=== PATIENT | male | born 1980 | race Asian ===

== ENCOUNTER 2022-10-24 14:32 | Inpatient (IN) | payer SELFPAY ==
[~2022-10-24] VITALS: Ht 175.3 cm; Wt 104.0 kg
[2022-10-24] MEDS: SODIUM CHLORIDE 0.9% 1,000 ML IV SCH (00:30)
[2022-10-24] MEDS ORDERED: PROPOFOL 10 MG/ML 20 ML IV ONE (16:15)
[2022-10-24] MEDS ORDERED: KETAMINE 50mg/ML 10ml Vial (500mg/10ml) IV ONE (16:15)
[2022-10-24] MEDS ORDERED: ONDANSETRON HCL 4 MG/2 ML VIAL IV ONE (18:15)
[2022-10-24] MEDS ORDERED: HYDROmorphone HCL 2 MG/ML VL/or syr IV ONE ×2 (18:15→22:45)
[2022-10-24] MEDS ORDERED: HYDROcodone-ACET 5/325MG TAB PO PRN (23:00)
[2022-10-24] MEDS ORDERED: NITROGLYCERIN 0.4 MG SL TAB SL PRN (23:00)
[2022-10-24] MEDS ORDERED: TEMAZEPAM 15 MG CAP PO PRN (23:00)
[2022-10-24] MEDS ORDERED: ACETAMINOPHEN 325 MG TAB PO PRN (23:00)
[2022-10-24] MEDS ORDERED: DOCUSATE SOD 100 MG CAP PO PRN (23:00)
[2022-10-24] MEDS ORDERED: MORPHINE SULFATE INJ 2 MG/ml SYRG IV PRN (23:00)
[2022-10-24] MEDS ORDERED: ONDANSETRON HCL 4 MG/2 ML VIAL IV PRN (23:00)
[2022-10-24 23:13] LABS: Basophils # (auto) 0 10 ^3/uL (0-0.2); Eosinophils # (auto) 0.1 10 ^3/uL (0-0.8); Hemoglobin 12.9 g/dL (13.5-17.5); Nucleated Red Blood Cells % 0.1 %; Red Cell Distribution Width 15.1 % (11.8-14.3)
[2022-10-24 23:15] LABS: Basophils % (auto) 0.4 % (0.0-2.0); Eosinophils % (auto) 1.2 % (0.0-7.0); Hematocrit 41.9 % (41.0-53.0); Lymphocytes % (auto) 36.3 % (10.0-50.0); Mean Corpuscular Hemoglobin 21.2 pg (28.0-32.0); Mean Corpuscular Hgb Conc. 30.8 g/dL (32.0-36.0); Mean Corpuscular Volume 68.7 fL (80.0-100.0); Monocytes # (auto) 0.8 10 ^3/uL (0-1.3); Monocytes % (auto) 10.2 % (0.0-12.0); Neutrophils # (auto) 4.3 10 ^3/uL (1.6-8.6); Neutrophils % (auto) 51.9 % (37.0-80.0); White Blood Cell 8.3 10^3/uL (4.4-10.8)
[2022-10-24 23:36] LABS: BUN/Creatinine Ratio 19.1; Calcium 8.6 mg/dL (8.5-10.1)
[2022-10-25 05:00] VITALS: BP 147/84
[2022-10-25 07:32] LABS: Basophils # (auto) 0 10 ^3/uL (0-0.2); Basophils % (auto) 0.5 % (0.0-2.0); Eosinophils # (auto) 0.2 10 ^3/uL (0-0.8); Hemoglobin 12.8 g/dL (13.5-17.5); Lymphocytes # (auto) 2.3 10 ^3/uL (0.4-5.4); Mean Corpuscular Hgb Conc. 30.8 g/dL (32.0-36.0); Monocytes # (auto) 0.7 10 ^3/uL (0-1.3)
[2022-10-25 07:34] LABS: Eosinophils % (auto) 2.5 % (0.0-7.0); Hematocrit 41.8 % (41.0-53.0); Lymphocytes % (auto) 36.4 % (10.0-50.0); Mean Corpuscular Hemoglobin 21.2 pg (28.0-32.0); Mean Corpuscular Volume 68.9 fL (80.0-100.0); Monocytes % (auto) 11.1 % (0.0-12.0); Neutrophils # (auto) 3.2 10 ^3/uL (1.6-8.6); Neutrophils % (auto) 49.5 % (37.0-80.0); Nucleated Red Blood Cells % 0.3 %; Red Blood Cells 6.07 10^6/uL (4.5-5.90); Red Cell Distribution Width 15.1 % (11.8-14.3)
[2022-10-25 07:36] LABS: White Blood Cell 6.4 10^3/uL (4.4-10.8)
[2022-10-25 07:39] LABS: INR 1.08 (0.9-1.15); Partial Thromboplastin Time 30.2 sec (24.6-33.4)
[2022-10-25 07:51] LABS: Albumin 3.4 g/dL (3.4-5.0); Calcium 8.5 mg/dL (8.5-10.1); Potassium 4.2 mmol/L (3.5-5.1)
[2022-10-25 07:54] LABS: BUN/Creatinine Ratio 18.6
[2022-10-25 07:56] LABS: Bilirubin, Total 0.7 mg/dL (0.2-1.0); Total Protein 6.8 g/dL (6.4-8.2)
[2022-10-25 08:33] VITALS: BP 151/81
[2022-10-25] MEDS: ENOXAPARIN SOD 40 MG/0.4 ML SYRINGE SC SCH (10:10)
[2022-10-25] MEDS: HYDROmorphone HCL 2 MG/ML VL/or syr IV PRN ×3 (10:20→21:07)
[2022-10-25 12:49] VITALS: BP 161/85
[2022-10-25] MEDS ORDERED: CHOLECALCIFEROL (VITD3) 1,000UNIT=25mCg TAB PO ONE (13:15)
[2022-10-25] MEDS: SODIUM CHLORIDE 0.9% 1,000 ML IV SCH (15:40)
[2022-10-25 16:56] VITALS: BP 145/80
[2022-10-25 22:00] VITALS: BP 148/96
[2022-10-26] MEDS: HYDROmorphone HCL 2 MG/ML VL/or syr IV PRN (03:33)
[2022-10-26 05:00] VITALS: BP 123/70
[2022-10-26] MEDS: SODIUM CHLORIDE 0.9% 1,000 ML IV SCH (05:38)
[2022-10-26 09:00] VITALS: BP 158/97
[2022-10-26] MEDS ORDERED: HYDROmorphone HCL 2 MG/ML VL/or syr ONE (09:04)
[2022-10-26] MEDS ORDERED: fentaNYL CITRATE 100 MCG/2 ML VL ONE (09:04)
[2022-10-26] MEDS ORDERED: MIDAZOLAM HCL 2MG/2ML 2ml VIAL (1mg/ml) ONE (09:04)
[2022-10-26] MEDS ORDERED: DexAMETHasone SOD PHOS 10MG/1ML VIAL INJ ONE (09:05)
[2022-10-26] MEDS ORDERED: PROPOFOL 10 MG/ML 20 ML IV ONE (09:05)
[2022-10-26] MEDS ORDERED: GLYCOPYRROLATE 0.2 MG/ML 1ML VIAL ONE (09:05)
[2022-10-26] MEDS ORDERED: LIDOCAINE HCL 100 MG/5ML (2%) SYRG INJ IV ONE (09:05)
[2022-10-26] MEDS ORDERED: ONDANSETRON HCL 4 MG/2 ML VIAL ONE (09:05)
[2022-10-26] MEDS ORDERED: KETOROLAC TROMETH 30 MG/ML 1ML VIAL ONE (09:05)
[2022-10-26] MEDS ORDERED: VANCOMYCIN HCL 1000 MG VL ONE (09:09)
[2022-10-26] MEDS ORDERED: BUPIVACAINE 0.25% INJ 50ML VIAL ONE (09:10)
[2022-10-26] MEDS ORDERED: ceFAZolin 2 GM in D5W 5% 100 ML IV ONE (09:15)
[2022-10-26] MEDS ORDERED: ceFAZolin 1GM/50ML 100 ML IV ONE (09:15)
[2022-10-26] MEDS ORDERED: MEPERIDINE HCL (50 MG/ML) 1 ML VIAL ONE (09:45)
[2022-10-26] MEDS ORDERED: CHOLECALCIFEROL (VITD3) 1,000UNIT=25mCg TAB PO SCH (10:00)
[2022-10-26] MEDS: ENOXAPARIN SOD 40 MG/0.4 ML SYRINGE SC SCH (10:00)
[2022-10-26] MEDS ORDERED: TRANEXAMIC ACID 10 ML ONE (10:20)
[2022-10-26] MEDS ORDERED: HYDROmorphone HCL 2 MG/ML VL/or syr IV PRN (11:30)
[2022-10-26] MEDS ORDERED: ONDANSETRON HCL 4 MG/2 ML VIAL IV PRN (11:30)
[2022-10-26 16:09] VITALS: BP 124/84
[2022-10-26 17:00] VITALS: BP 132/76
== END 2022-10-26 18:10 | disposition home or self-care (01) | DRG 512 ==
LOC: ER 14:37 → OVERFLOW 23:00 → CENTRAL 10-25 02:34
PROVIDERS: ADMIT Nurse Practitioner Family; ATTEND Nurse Practitioner Family
PROC: 0PSJXZZ Reposition Left Radius, External Approach (ICD-10-PCS; 2022-10-24)
PROC: BP1M1ZZ Fluoroscopy of Left Wrist using Low Osmolar Contrast (ICD-10-PCS; 2022-10-26)
PROC: 0PSJ04Z Reposition Left Radius with Internal Fixation Device, Open Approach (ICD-10-PCS; principal; 2022-10-26 09:26)
DX: S52.372A Galeazzi's fracture of left radius, initial encounter for closed fracture (principal); E66.9 Obesity, unspecified; Z20.822 Contact with and (suspected) exposure to COVID-19; Z68.33 Body mass index [BMI] 33.0-33.9, adult; V00.848A Other accident with standing micro-mobility pedestrian conveyance, initial encounter; Y93.89 Activity, other specified; Y92.89 Other specified places as the place of occurrence of the external cause; Y99.8 Other external cause status
CPT/HCPCS: 25605; 36415; 71045; 73090; 73100; 73110; 76000; 80048; 80053; 82306; 85025; 85610; 85730; 87426; 96374; 96375; G0378; J0690; J1100; J1885; J2250; J2405; J2704; J3490; J7060